=== PATIENT | male | born 1995 | race Caucasian/White ===

== ENCOUNTER 2019-06-10 11:02 | Emergency (ER) | payer OTHER ==
[~2019-06-10] VITALS: Ht 177.8 cm; Wt 105.7 kg
[2019-06-10] MEDS ORDERED: PERCOCET 5-3251 EACH PO (11:52)
[2019-06-10] MEDS ORDERED: KEFLEX500 M1 PO (11:53)
[2019-06-10 12:23] VITALS: BP 122/74
== END 2019-06-10 12:26 | disposition home or self-care (01) ==
LOC: ER 11:02
DX: S68.115A Complete traumatic metacarpophalangeal amputation of left ring finger, initial encounter (principal); X50.0XXA Overexertion from strenuous movement or load, initial encounter; X50.9XXA Other and unspecified overexertion or strenuous movements or postures, initial encounter; Y93.89 Activity, other specified; Y92.89 Other specified places as the place of occurrence of the external cause; Y99.9 Unspecified external cause status